=== PATIENT | male | born 1985 | race Caucasian/White ===

== ENCOUNTER 2019-05-22 09:40 | Emergency (ER) | payer OTHER ==
[~2019-05-22] VITALS: Ht 170.2 cm; Wt 73.9 kg
[2019-05-22] MEDS ORDERED: VENTOLIN HFA18 GM (10:14)
== END 2019-05-22 11:58 | disposition home or self-care (01) ==
LOC: ER 09:40
DX: G25.2 Other specified forms of tremor (principal); R20.2 Paresthesia of skin; F41.1 Generalized anxiety disorder